=== PATIENT | male | born 1985 | race African-American/Black ===

== ENCOUNTER 2020-01-27 20:27 | Emergency (ER) | payer OTHER ==
[~2020-01-27] VITALS: Ht 180.3 cm; Wt 111.1 kg
[2020-01-27] MEDS ORDERED: ZOLOFT100 MG PO (21:53)
[2020-01-27] MEDS ORDERED: ABILIFY10 MG PO (21:53)
[2020-01-27] MEDS ORDERED: COZAAR 25 MG TA25 M2 PO (21:53)
[2020-01-27] MEDS ORDERED: CLONAZEPAM 0.50.5 M1 PO (21:54)
[2020-01-27] MEDS ORDERED: CLINDAMYCIN PO (21:57)
[2020-01-27] MEDS ORDERED: ULTRAM 50MG TAB50 MG PO (23:17)
[2020-01-27 23:29] VITALS: BP 140/76
== END 2020-01-27 23:30 | disposition home or self-care (01) ==
LOC: ER 20:27
DX: S02.5XXA Fracture of tooth (traumatic), initial encounter for closed fracture (principal); I10 Essential (primary) hypertension; F31.9 Bipolar disorder, unspecified; F41.9 Anxiety disorder, unspecified; F17.210 Nicotine dependence, cigarettes, uncomplicated; Z79.899 Other long term (current) drug therapy; X58.XXXA Exposure to other specified factors, initial encounter; Y93.89 Activity, other specified; Y92.89 Other specified places as the place of occurrence of the external cause; Y99.8 Other external cause status